=== PATIENT | male | born 1950 | race Caucasian/White ===

== ENCOUNTER 2021-06-08 15:46 | Outpatient (CLI) | payer OTHER, SELFPAY ==
--- NOTE | 2021-06-08 11:45 | COLBX_PTH ---
PATIENT: JOELLE KEY LOC: [facility]#:[id number] AGE/SX: 70/M ROOM: RE06/08/[address]: Dr. Nehemiah Kinney MD : 1950 BED: DIS: 06/08/2021 SPEC #: [id number] RECD: 06/08/21 15:20 STATUS: RICK GERMAN #: [id number] SONJA: 06/08/21 11:[address]: Nehemiah Kinney DEPT: SURGICAL PATHOLOGY RECD BY: Gunjan Lawler ENTERED: 06/09/21 09:55 SP TYPE: COLON BX OTHR DR: DECLAN Tissues: Rectum, NOS Procedures: Surgery Specimen Level IV HEADER OPERATION: Colonoscopy with biopsy PRE-OP DIAGNOSIS: Proctitis / anal spasm TISSUE SUBMITTED: Rectal biopsy, rule out proctitis MICROSCOPIC DIAGNOSIS Rectal biopsy: Fragments of colonic mucosa, no pathologic diagnosis. EARLINE:kate 06/10/2021 MICROSCOPIC DESCRIPTION Slides are reviewed. GROSS DESCRIPTION Received in fixative is one container labeled with the patient's name and designated rectal biopsy. The specimen consists of multiple irregular fragments of light stringer soft tissue that in aggregate measure 0.6 x 0.6 x 0.1 cm. The specimen is totally submitted in one cassette. / SJ:kate 06/09/2021 TC:4 CPT: 39352
== END 2021-06-08 23:59 | disposition home or self-care (01) ==
LOC: LABSPEC 15:52
PROVIDERS: Visit Provider Internal Medicine Gastroenterology
DX: K62.89 Other specified diseases of anus and rectum (principal)
CPT/HCPCS: 88305